=== PATIENT | female | born 1940 | race African-American/Black ===

== ENCOUNTER 2022-08-20 13:57 | Inpatient (IN) ==
--- NOTE | 2022-08-20 15:54 | ED.PDOC ---
General ED Provider: Dr. MINH CARRASCO MD Chief Complaint: Non-specific Complaint Stated Complaint: swelling of lower lip and neck Time Seen by Provider: 08/20/22 15:43 Information Source: Family Exam Limitations: Dementia Nursing and Triage Documentation Reviewed and Agree: Yes Does patient meet sepsis criteria?: No System Inflammatory Response Syndrome: Not Applicable Sepsis Protocol: For patient's 13 years and over: Temp is 96.8 and below OR 101 and greater Pulse >90 BPM Resp >20/minute Acutely Altered Mental Status Are patient's symptoms suggestive of a new infection, such as: -Pneumonia -Skin, Soft Tissue -Endocarditis -UTI -Bone, Joint Infection -Implantable Device -Acute Abdominal Infection -Wound Infection -Meningitis -Blood Stream Catheter Infection -Unknown EENT Complaint Exam Throat Complaint/Exam Onset/Duration: ~3 days ago first noticed Symptoms Are: Worse Timimg: Constant Initial Severity: Mild Current Severity: Moderate Aggravating: Reports None Alleviating: Reports None Associated Signs and Symptoms: Denies Fever, Dysphagia, Drooling, Foreign body sensation, Chills, Cough, Wheezing, Hoarseness, Sinus discomfort, Nasal congestion, Difficulty breathing, Lethargy, Irritability, Decreased activity, Vomiting, Diarrhea, Decreased hearing or Ear drainage Related History: Denies Similar Episode Stridor Present: No Differential Diagnoses: Pharyngitis, Sinusitis, Tonsillitis and URI Review of Systems Review Of Systems Constitutional: Reports Malaise and Weakness Ears, Nose, Mouth, Throat: Reports Mouth pain, Throat pain and Throat swelling All Other Systems: Other (complete and accurate ROS not possible secondary to dementia) [facility] Medical History 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 - Atherosclerotic heart disease of [place] coronary artery without angina pectoris (ICD-10) Constipation K59.00 - Constipation, unspecified (ICD-10) Family History Other No known health problems Social History Smoking and tobacco status: Unknown if ever smoked Physical Exam Physical Exam Appearance: Reports Ill-appearing Ill-appearing: Moderate Pain Distress: Moderate Eyes: Reports KARRI, EOMI and Conjunctiva clear ENT: Reports Ears normal, Nose normal and Other (tongue coated with white) Neck: Nonsupple (normal age-appropriate external appearance) Respiratory: Reports Airway patent, Breath sounds clear, Breath sounds equal, Breath sounds diminished and Respirations nonlabored Cardiovascular: Reports RRR GI/: Reports Soft, Nontender and Bowel sounds normal Musculoskeletal: Reports Limited strength and Other (unable to fully examine secondary to dementia) Skin: Reports Warm and Dry Neurological: Reports Sensation intact, Cranial nerves intact, Disoriented, Alert to verbal and Other (advanced dementia at baseline); Denies Focal Deficit Psychiatric: Reports Anxious and Other (demented, intermittent screaming) Critical Care Note Critical Care Note Total Critical Care Time (mins): 0 Course Course 08/23/22 04:55 08/23/22 04:45 Vital Signs: Temp Pulse Resp BP Pulse Ox 08/20/22 15:26 97.9 F 86 16 116/89 100 Patient presents with swelling and erythema of the neck and lower lip which was first noticed ~2 days ago. Labs showed a mild leukocytosis with a left shift and progressively worsening CRI. CT reported "Extensive perimandibular soft tissue swelling likely cellulitis. There is not a well-defined drainable abscess evident although a phlegmon is not excluded. There are also numerous enlarged reactive submental and perimandibular lymph node. Atherosclerosis". I spoke with the Hospitalist PERFUSIONIST here, Taye Fulton, who accepted. I gave the f irst dose of Zosyn, with dosage adjusted to account for her renal function. The patient was in stable condition when transported from the ED to the medical floor. Discharge Plan Discharge Patient Disposition: ADMITTED INPATIENT Discharge Problem: Cellulitis of neck, Chronic renal insufficiency Did you review [place] BLOOD OR BLOOD BANK TECHNICIAN for ALL controlled substances?: Not Applicable ED Provider: MINH CARRASCO Condition: Stable Physician Progress Note: []
[2022-08-20 16:14] LABS: BASOPHILS % (AUTO) 0.3 % (0.0-3.0); EOSINOPHILS % (AUTO) 0.1 % (0.0-7.0); HEMATOCRIT 31.8 % (37.0-47.0); HEMOGLOBIN 10.1 g/dl (12.0-16.0); IMMATURE GRANULOCYTE % (AUTO) 0.3 % (0.0-5.0); LYMPHOCYTES # (AUTO) 0.8 K/uL (0.60-3.4); LYMPHOCYTES % (AUTO) 6.8 (10.0-50.0); MEAN CORPUSCULAR HEMOGLOBIN 29.5 pg (27.0-31.0); MEAN CORPUSCULAR HGB CONC 31.8 (31.8-35.4); MONOCYTES % (AUTO) 8.6 (0-10); NEUTROPHILS # (AUTO) 9.9 K/ul (2.0-6.9); NEUTROPHILS % (AUTO) 83.9 % (42.2-75.2); PLATELET COUNT 410 10^3/uL (140-440); RDW COEFFICIENT OF VARIATION 13.4 % (11.6-14.8); RED BLOOD COUNT 3.42 10^6/ul (4.20-5.40); WHITE BLOOD COUNT 11.81 K/ul (4.6-10.2)
[2022-08-20 16:28] LABS: ALBUMIN 4.6 g/dL (3.5-5.0); ALKALINE PHOSPHATASE 96.2 U/L (53-141); ASPARTATE AMINO TRANSFERASE 22.3 U/L (14-36); BILIRUBIN,TOTAL 0.56 mg/dL (0.2-1.3); BLOOD UREA NITROGEN 41.5 mg/dL (7-17); CALCIUM 10.42 mg/dL (8.4-10.2); CARBON DIOXIDE 26.6 mmol/L (22-30.0); CHLORIDE 109.7 mmol/L (98-107); CREATININE 2.64 mg/dL (0.60-1.30); GLUCOSE 262.2 mg/dL (74-106); MAGNESIUM 2.43 mg/dL (1.6-2.3); POTASSIUM 4.94 mmol/L (3.5-5.1); SODIUM 144.4 mmol/L (134.5-145); TOTAL PROTEIN 8.79 g/dL (6.3-8.2)
[2022-08-20 16:34] LABS: MOLECULAR FLU A NEGATIVE BY NAAT (NEGATIVE); MOLECULAR FLU B NEGATIVE BY NAAT (NEGATIVE)
[2022-08-20 16:53] LABS: SARS COV-2 RNA RAPID NAAT NEGATIVE (NEGATIVE)
--- NOTE | 2022-08-20 19:44 | CT ---
EXAM: CT OF THE NECK WITHOUT CONTRAST TECHNIQUE: CT of the neck was performed without contrast. Multiplanar reformats were made. HISTORY: Swelling and redness under chain COMPARISON: None. FINDINGS: There is extensive perimandibular soft tissue swelling centrally and paracentral left. Skin thickeni ng and localized tony reaction present. There is an abnormal appearance of the mandible on reconstr uction which may be related to motion artifact. A well-defined drainable fluid collection is not clearly evident however findings may be on the basis of a phlegmon. The submandibular glands are symmetric. Parotid glands are symmetric. Epiglottis is normal.. Tonsillar fat planes are grossly symmetric. Orbits are unremarkable. Scattered calcified atheromatous plaques. Multilevel cervical disc disease is present throughout the cervical spine. Multilevel facet arthropa thy is present. No acute findings in the pulmonary apices. Small thyroid nodule on the left is present. IMPRESSION: Extensive perimandibular soft tissue swelling likely cellulitis. There is not a well-defined drainab le abscess evident although a phlegmon is not excluded. There are also numerous enlarged reactive [place] bmental and perimandibular lymph node. Atherosclerosis. All CT scans are performed using dose optimization techniques as appropriate to the performed exam an d includes at least one of the following: Automated exposure control, adjustment of the mA and/or kV according to size, and the use of iterative reconstruction technique. All CT scans are performed using dose optimization techniques as appropriate to the performed exam an d include at least one of the following: Automated exposure control, adjustment of the mA and/or kV according t o size, and the use of iterative reconstruction technique.
[2022-08-20] MEDS ORDERED: ZOSYN 2.25 GM 2.25 GM in SODIUM CHLORIDE 100ML 100 ML IV ONE (20:16)
[2022-08-20] MEDS ORDERED: TYLENOL PO PRN (20:18)
[2022-08-20] MEDS ORDERED: ZOFRAN 4 MG/2 ML IVP PRN (20:23)
[2022-08-20] MEDS ORDERED: SODIUM CHLORIDE 1,000 ML IV STA (20:26)
[2022-08-20 22:57] VITALS: BMI 16.7
[2022-08-21] MEDS ORDERED: ZOSYN 2.25 GM 2.25 GM in SODIUM CHLORIDE 100ML 100 ML IV SCH ×2 (04:30→13:00)
[2022-08-21 05:27] LABS: BASOPHILS % (AUTO) 0.2 % (0.0-3.0); HEMATOCRIT 29.9 % (37.0-47.0); HEMOGLOBIN 9.2 g/dl (12.0-16.0); IMMATURE GRANULOCYTE # (AUTO) 0.1 (0.0-1.0); IMMATURE GRANULOCYTE % (AUTO) 0.4 % (0.0-5.0); LYMPHOCYTES # (AUTO) 0.6 K/uL (0.60-3.4); LYMPHOCYTES % (AUTO) 4.6 (10.0-50.0); MEAN CORPUSCULAR HEMOGLOBIN 28.8 pg (27.0-31.0); MEAN CORPUSCULAR HGB CONC 30.8 (31.8-35.4); MEAN CORPUSCULAR VOLUME 93.4 fl (81.0-99.0); MONOCYTES # (AUTO) 1.1 K/uL (0.4-2.0); MONOCYTES % (AUTO) 7.6 (0-10); NEUTROPHILS % (AUTO) 87.2 % (42.2-75.2); PLATELET COUNT 411 10^3/uL (140-440); RDW COEFFICIENT OF VARIATION 13.4 % (11.6-14.8); WHITE BLOOD COUNT 13.78 K/ul (4.6-10.2)
[2022-08-21 05:34] LABS: ALANINE AMINOTRANSFERASE 13.8 U/L (0-35); ALBUMIN 4.09 g/dL (3.5-5.0); ALKALINE PHOSPHATASE 89.2 U/L (53-141); ASPARTATE AMINO TRANSFERASE 19.9 U/L (14-36); BILIRUBIN,TOTAL 0.53 mg/dL (0.2-1.3); BLOOD UREA NITROGEN 42.2 mg/dL (7-17); CALCIUM 9.57 mg/dL (8.4-10.2); CARBON DIOXIDE 23.6 mmol/L (22-30.0); CHLORIDE 111.4 mmol/L (98-107); CREATININE 2.67 mg/dL (0.60-1.30); POTASSIUM 4.43 mmol/L (3.5-5.1); SODIUM 142.6 mmol/L (134.5-145); TOTAL PROTEIN 7.87 g/dL (6.3-8.2)
[2022-08-21] MEDS ORDERED: TYLENOL RC ONE (05:36)
[2022-08-21] MEDS ORDERED: OLANZAPINE 5 MG PO SCH (09:15)
[2022-08-21] MEDS ORDERED: VANCOMYCIN 1 GRAM/200 ML PREMIX 1 GM/200 ML BAG IV SCH (09:30)
[2022-08-21] MEDS: COLACE PO SCH ×2 (09:35→20:40)
[2022-08-21] MEDS: ASPIRIN CHEWABLE PO SCH (09:36)
[2022-08-21] MEDS: APRESOLINE PO SCH ×2 (09:37→20:39)
[2022-08-21] MEDS: NORVASC PO SCH (09:38)
[2022-08-21] MEDS: LOPRESSOR PO SCH (09:39)
[2022-08-21] MEDS: NAMENDA PO SCH ×2 (09:39→20:40)
--- NOTE | 2022-08-21 09:42 | PCM ---
Date of Service Date Seen by Provider: 08/21/22 Time Seen by Provider: 08:15 Admit Day/Time Admission Date: 08/20/22 Admission Time: 20:18 Reason for Admission Chief Complaint: CELLULITIS Hospital Provider Hospital Provider: Meagan Lowery PA-C, [facility] History of Present Illness History of Present Illness: Patient is an 82-year-old female from the assisted with past medical history of dementia, diabetes, CAD, hypertension, hyperlipidemia, history of stroke, and anxiety who presented with a 2-day history of left-sided neck and facial swelling and redness. Her lower lip has been swollen as well. She has been running a fever. She is unable to verbalize her needs due to her dementia. In the ER she was found to have mild leukocytosis. CT of soft tissue of neck without showed perimandibular cellulitis without a collection of fluid and lymphadenopathy. She was given Zosyn. She was admitted to observation. On my evaluation this morning the patient does not answer my questions but she does nod yes occasionally. She does have significant left-sided facial swelling, warmth, induration. She is eating breakfast with the tech. She is able to swallow. However she is harboring food on the left side of her mouth specifically oatmeal during my evaluation. ROS and past medical history limited due to patient unable to contribute to history. Other information gathered from ER note and previous assisted visit notes. Case Discussed With Case Discussed With: Patient's case was discussed with the ER Physicians, Dr. Rodriguez. 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 - Atherosclerotic heart disease of [place] coronary artery without angina pectoris (ICD-10) Constipation K59.00 - Constipation, unspecified (ICD-10) Family History Other No known health problems Social History Smoking and tobacco status: Unknown if ever smoked Allergies Allergies Allergy/AdvReac Type Severity Reaction Status Date / Time tuna oil Allergy Intermediate Unknown Verified 08/21/22 05:47 Current Medications Home Medications amlodipine 10 mg tablet 10 mg PO DAILY hypertension 08/20/22 [History Confirmed 08/20/22 Last Taken Unknown] aspirin 81 mg chewable tablet 81 mg PO DAILY 08/20/22 [History Confirmed 08/20/22 Last Taken Unknown] atorvastatin 40 mg tablet 40 mg PO QHS hyperlipidemia 08/20/22 [History Confirmed 08/20/22 Last Taken Unknown] docusate sodium 100 mg capsule (Col-Rite) 100 mg PO BID 08/20/22 [History Confirmed 08/20/22 Last Taken Unknown] docusate sodium 100 mg capsule (Col-Rite) 100 mg PO Q6HR PRN constipation 08/20/22 [History Confirmed 08/20/22 Last Taken Unknown] ezetimibe 10 mg tablet 10 mg PO QHS 08/20/22 [History Confirmed 08/20/22 Last Taken Unknown] hydralazine 25 mg tablet 25 mg PO BID 08/20/22 [History Confirmed 08/20/22 Last Taken Unknown] melatonin 3 mg capsule 3 mg PO BEDTIME 08/20/22 [History Confirmed 08/20/22 Last Taken Unknown] memantine 5 mg tablet 5 mg PO BID 08/20/22 [History Confirmed 08/20/22 Last Taken Unknown] metoprolol tartrate 50 mg tablet 50 mg PO DAILY hypertension 08/20/22 [History Confirmed 08/20/22 Last Taken Unknown] olanzapine 5 mg disintegrating tablet 2.5 mg PO BID dementia 08/20/22 [History Confirmed 08/20/22 Last Taken Unknown] Home Acetaminophen (Acetaminophen 325 Mg Tablet) 650 mg PO Q4H PRN PRN Reason: fever Amlodipine Besylate (Amlodipine Besylate 5 Mg Tablet) 10 mg PO DAILY [facility] Last Admin: 08/21/22 09:38 Dose: 10 mg Aspirin (Aspirin 81 Mg Tab.Chew) 81 mg PO DAILYWM [facility] Last Admin: 08/21/22 09:36 Dose: 81 mg Atorvastatin Calcium (Atorvastatin Calcium 20 Mg Tablet) 40 mg PO BEDTIME [facility] Docusate Sodium (Docusate Sodium 100 Mg Capsule) 100 mg PO BID [facility] Last Admin: 08/21/22 09:35 Dose: 100 mg Enoxaparin Sodium (Enoxaparin Sodium 30 Mg/0.3 Ml Syr) 30 mg SUBCUT DAILY [facility] Hydralazine HCl (Hydralazine Hcl 50 Mg Tablet) 25 mg PO BID [facility] Last Admin: 08/21/22 09:37 Dose: 25 mg CEFEPIME 2 GM/D5W (Maxipime 2 Gm/50 Ml D5w) 2 gm in 50 mls @ 100 mls/hr IV DAILY [facility] Stop: 08/25/22 08:59 VANCOMYCIN/WATER FOR INJ (PEG) (Vancomycin 1 Gram/200 Ml Premix) 1 gm in 200 mls @ 200 mls/hr IV Q48HR [facility] Stop: 08/24/22 09:29 Last Admin: 08/21/22 09:33 Dose: 200 mls/hr Lactated Ringer's (Lactated Ringers) 1,000 mls @ 100 mls/hr IV .Q10H [facility] Melatonin (Melatonin 3 Mg Tablet) 3 mg PO BEDTIME [facility] Memantine (Memantine Hcl 10 Mg Tablet) 5 mg PO BID [facility] Last Admin: 08/21/22 09:39 Dose: 5 mg Metoprolol Tartrate (Metoprolol Tartrate 50 Mg Tablet) 50 mg PO DAILY [facility] Last Admin: 08/21/22 09:39 Dose: 50 mg Olanzapine (Olanzapine 2.5 Mg Tablet) 2.5 mg PO BID [facility] Last Admin: 08/21/22 09:54 Dose: 2.5 mg Ondansetron HCl (Ondansetron Hcl/Pf 4 Mg/2 Ml Sdv) 4 mg IVP Q6H PRN PRN Reason: Nausea / Vomiting Discontinued Medications Acetaminophen (Acetaminophen 650 Mg Supp.Rect) 650 mg RC ONCE ONE Stop: 08/21/22 05:37 Last Admin: 08/21/22 05:51 Dose: 650 mg Piperacillin Sod/Tazobactam (Sod 2.25 gm/ Sodium Chloride) 100 mls @ 100 mls/hr IV ONCE ONE Stop: 08/20/22 21:15 Last Admin: 08/20/22 21:45 Dose: 100 mls/hr Piperacillin Sod/Tazobactam (Sod 2.25 gm/ Sodium Chloride) 100 mls @ 100 mls/hr IV Q8H [facility] Stop: 08/24/22 04:29 Last Admin: 08/21/22 04:41 Dose: 100 mls/hr Sodium Chloride (Sodium Chloride) 1,000 mls @ 75 mls/hr IV .[id number] STA Stop: 08/21/22 09:45 Last Admin: 08/20/22 21:48 Dose: 75 mls/hr Piperacillin Sod/Tazobactam (Sod 2.25 gm/ Sodium Chloride) 100 mls @ 100 mls/hr IV Q8HR JIMENEZ Stop: 08/24/22 04:29 Review of Systems Constitutional: Reports Fever Mouth: Reports Swelling Throat: Denies Difficulty Swallowing Respiratory: Denies Shortness of air Gastrointestinal: Denies Nausea or Vomiting Physical examination Most Recent Vital Signs: Most Recent Vital Signs Temperature 98.9 F 08/21/22 08:12 Temperature Source Axillary 08/21/22 08:12 Temperature Source Infrared 08/20/22 19:18 Pulse Rate 105 H 08/21/22 05:33 Respiratory Rate 18 08/21/22 05:33 Blood Pressure 139/78 08/21/22 05:33 Blood Pressure Mean 98 08/21/22 05:33 Blood Pressure Left Arm 158/88 08/20/22 22:38 Blood Pressure Location Left Arm 08/21/22 05:33 Blood Pressure Position Supine 08/21/22 05:33 O2 Sat by Pulse Oximetry 98 08/21/22 05:33 Oxygen Delivery Method Room Air 08/21/22 08:12 Height 5 ft 6 in 08/21/22 09:20 Weight 120 lb 08/20/22 22:38 Telemetry Type Remote Telemetry 08/21/22 07:00 Telemetry Monitoring Continues 08/21/22 07:00 Telemetry Heart Rate 97 08/21/22 07:00 EKG MI Interval 0.15 08/21/22 07:00 EKG QRS Interval 0.12 H 08/21/22 07:00 Telemetry Strip Reading SR with BBB 08/21/22 07:00 Appearance: Positive No Apparent Distress and Other (Alert. Does not answer orientation questions. Demented at baseline. Sitting up in bed eating breakfast with tech, has legs flexed.) HEENT: Positive Other (Dry oral mucosa. Unable to fully evaluate inside of mouth as patient does not follow my commands, is resistant to tongue depressor, and is holding oatmeal inside her left cheek. ) Neck: Positive Midline Trachea and Other (Significant swelling, redness, induration, and warmth of left upper neck extending into left jaw and lower lip. Swelling of lower lip noted. No drooling. Airway intact. Able to open and close mouth. ) Chest/Lungs: Positive Symmetrical With Equal Breath Sounds and Clear to Auscultation Bilaterally; Negative Rales, Rhonci or Wheezes Heart: Positive RRR GI/: Positive Soft, Nontender and Bowel Sounds Normal Musculoskeletal: Positive Decreased ROM and Other (Atrophy of lower ext muscles, knees and hips flexed.) Extremities: Negative Edema Neurological: Positive Alert and Other (+generalized weakness. +baseline confusion. ) Psychiatric: Positive Other (Unable to fully evaluate due to her dementia. ) Labs This Visit Labs This Visit: Labs This Visit 08/20/22 08/21/22 16:05 04:33 WBC 11.81 H 13.78 H RBC 3.42 L 3.20 L Hgb 10.1 L 9.2 L Hct 31.8 L 29.9 L MCV 93.0 93.4 MCH 29.5 28.8 MCHC 31.8 30.8 L RDW Coeff of Elsy 13.4 13.4 Plt Count 410 411 Immature Gran % (Auto) 0.3 0.4 Neut % (Auto) 83.9 H 87.2 H Lymph % (Auto) 6.8 L 4.6 L [place] % (Auto) 8.6 7.6 Eos % (Auto) 0.1 0.0 Baso % (Auto) 0.3 0.2 Neut # (Auto) 9.9 H 12.0 H Lymph # (Auto) 0.8 0.6 [place] # (Auto) 1.0 1.1 Eos # (Auto) 0.0 0.0 Baso # (Auto) 0.0 0.0 Immature Gran # (Auto) 0.0 0.1 Sodium 144.4 142.6 Potassium 4.94 4.43 Chloride 109.7 H 111.4 H Carbon Dioxide 26.6 23.6 Anion Gap 13.04 12.03 BUN 41.5 H 42.2 H Creatinine 2.64 H 2.67 H Estimated GFR (MDRD) 21.00 21.00 BUN/Creatinine Ratio 15.71 15.80 Glucose 262.2 H 230.0 H Calcium 10.42 H 9.57 Magnesium 2.43 H Total Bilirubin 0.56 0.53 AST 22.3 19.9 ALT 14.0 13.8 Alkaline Phosphatase 96.2 89.2 Total Protein 8.79 H 7.87 Albumin 4.60 4.09 Globulin 4.19 3.78 Albumin/Globulin Ratio 1.09 1.08 Influ A Molecular Assay Negative by naat Influ B Molecular Assay Negative by naat SARS CoV-2 RNA Rapid GARRET Negative Microbiology This Visit 08/20/22 16:05 Throat Group A Strep Molecular Assay - Final Imaging Imaging: EXAM: CT OF THE NECK WITHOUT CONTRAST TECHNIQUE: CT of the neck was performed without contrast. Multiplanar reformats were made. HISTORY: Swelling and redness under chain COMPARISON: None. FINDINGS: There is extensive perimandibular soft tissue swelling centrally and paracentral left. Skin thickening and localized tony reaction present. There is an abnormal appearance of the mandible on reconstruction which may be related to motion artifact. A well-defined drainable fluid collection is not clearly evident however findings may be on the basis of a phlegmon. The submandibular glands are sy mmetric. Parotid glands are symmetric. Epiglottis is normal.. Tonsillar fat planes are grossly symmetric. Orbits are unremarkable. Scattered calcified atheromatous plaques. Multilevel cervical disc disease is present throughout the cervical spine. Multilevel facet arthropathy is present. No acute findings in the pulmonary apices. Small thyroid nodule on the left is present. IMPRESSION: Extensive perimandibular soft tissue swelling likely cellulitis. There is not a well-defined drainable abscess evident although a phlegmon is not excluded. There are also numerous enlarged reactive submental and perimandibular lymph node. Atherosclerosis. Review Statement Review Statement: I have independently reviewed and interpreted the labs/EKGs/imaging that were ordered by the ER provider. I have reviewed all outside records that are available currently in our EMR including imaging/notes/labs from previous visits. Plan Plan: A&P: 1. Cellulitis of face/neck, left, moderate to severe - Will add vancomycin, pharmacy to dose. Stop zosyn, add cefepime due to renal function. Mrsa swab ordered. Tylenol prn for fever/pain. Pt currently able to tolerate PO and able to eat. CT negative for obvious abscess. 2. CAD - Continue home meds 3. Hypertension - Continue home metoprolol, amlodipine, and hydralazine 4. Hyperlipidemia - Continue atorvastatin 5. DMT2 - Recently stopped metformin due to renal function per assisted visit notes, will monitor daily glucose and add sliding scale if needed. 6. Dementia - Continue home melatonin and olanzapine. If patient becomes agitated call provider, will consider IM olanzapine if needed. DVT Prophylaxis: Lovenox Time Spent: Greater than 80 minutes spent with patient, 50% of the time spent with this patient was devoted to counseling and coordination of care. [facility] minutes spent discussing advance care planning/reviewing old charts. DNR per records Admit to: Made inpatient today, 08/21. Patient has significant swelling, warmth, and redness of left upper neck and facial area. Will likely require more than two midnights to improve. Requiring IV antibiotics with broad spectrum coverage. Pt also has diabetes which increases her risk of significant infection. Also co ncern for increased length of stay/recovery due to her underlying dementia. Discussed Plan of Care with Dr. Tomy Espinoza. Medications Medication Orders: Medications Ordered Category Date Time Status Acetaminophen [Tylenol] Meds 08/20/22 20:18 Active 650 mg PO Q4H PRN Amlodipine Besylate [Norvasc] Meds 08/21/22 09:30 Active 10 mg PO DAILY Aspirin [Aspirin Chewable] Meds 08/21/22 09:30 Active 81 mg PO DAILYWM Atorvastatin Calcium [Lipitor] Meds 08/21/22 21:00 Active 40 mg PO BEDTIME Cefepime 2 gm/D5w [Maxipime 2 gm/50 ml D5w] Meds 08/22/22 09:00 Active 2 gm in 50 ml IV DAILY Docusate Sodium [Colace] Meds 08/21/22 09:30 Active 100 mg PO BID Hydralazine HCl [Apresoline] Meds 08/21/22 09:30 Active 25 mg PO BID Melatonin Meds 08/21/22 21:00 Active 3 mg PO BEDTIME Memantine HCl [Namenda] Meds 08/21/22 09:30 Active 5 mg PO BID Metoprolol Tartrate [Lopressor] Meds 08/21/22 09:30 Active 50 mg PO DAILY Olanzapine [Zyprexa] Meds 08/21/22 09:30 Active 2.5 mg PO BID Ondansetron HCl/Pf [Zofran 4 mg/2 ml] Meds 08/20/22 20:23 Active 4 mg IVP Q6H PRN Sodium Chloride 0.9% [Sodium Chloride] 1,000 ml Meds 08/20/22 20:26 Active IV 75 mls/hr Vancomycin/Water For Inj (Peg) [Vancomycin 1 Gram/200 Meds 08/21/22 09:30 Active ml Premix] 1 gm in 200 ml IV Q48HR
[2022-08-21] MEDS: ZYPREXA PO SCH ×2 (09:54→20:39)
[2022-08-21] MEDS: LOVENOX SUBCUT SCH (11:07)
[2022-08-21] MEDS: MAXIPIME 2 GM/50 ML D5W 2 GM/50 ML BAG IV SCH (11:51)
[2022-08-21] MEDS: LACTATED RINGERS 1,000 ML IV SCH ×2 (13:10→21:19)
[2022-08-21] MEDS: MELATONIN PO SCH (20:39)
[2022-08-21] MEDS: LIPITOR PO SCH (20:39)
[2022-08-22 05:44] LABS: BASOPHILS % (AUTO) 0.4 % (0.0-3.0); EOSINOPHILS % (AUTO) 0.5 % (0.0-7.0); HEMATOCRIT 27.2 % (37.0-47.0); HEMOGLOBIN 8.5 g/dl (12.0-16.0); IMMATURE GRANULOCYTE % (AUTO) 0.3 % (0.0-5.0); LYMPHOCYTES # (AUTO) 1.1 K/uL (0.60-3.4); LYMPHOCYTES % (AUTO) 14.6 (10.0-50.0); MEAN CORPUSCULAR HEMOGLOBIN 29.3 pg (27.0-31.0); MEAN CORPUSCULAR HGB CONC 31.3 (31.8-35.4); MEAN CORPUSCULAR VOLUME 93.8 fl (81.0-99.0); MONOCYTES # (AUTO) 0.7 K/uL (0.4-2.0); MONOCYTES % (AUTO) 8.8 (0-10); NEUTROPHILS # (AUTO) 5.9 K/ul (2.0-6.9); NEUTROPHILS % (AUTO) 75.4 % (42.2-75.2); PLATELET COUNT 349 10^3/uL (140-440); RDW COEFFICIENT OF VARIATION 13.4 % (11.6-14.8); WHITE BLOOD COUNT 7.75 K/ul (4.6-10.2)
[2022-08-22 06:00] LABS: ALANINE AMINOTRANSFERASE 13.8 U/L (0-35); ALBUMIN 3.46 g/dL (3.5-5.0); ALKALINE PHOSPHATASE 74.2 U/L (53-141); ASPARTATE AMINO TRANSFERASE 23.5 U/L (14-36); BILIRUBIN,TOTAL 0.4 mg/dL (0.2-1.3); BLOOD UREA NITROGEN 44.1 mg/dL (7-17); CALCIUM 9.23 mg/dL (8.4-10.2); CHLORIDE 114.4 mmol/L (98-107); CREATININE 2.79 mg/dL (0.60-1.30); GLUCOSE 160.4 mg/dL (74-106); POTASSIUM 4.04 mmol/L (3.5-5.1); SODIUM 145.4 mmol/L (134.5-145)
[2022-08-22] MEDS: LACTATED RINGERS 1,000 ML IV SCH (07:20)
[2022-08-22] MEDS: COLACE PO SCH ×2 (08:30→20:01)
[2022-08-22] MEDS: LOVENOX SUBCUT SCH (08:30)
[2022-08-22] MEDS: NAMENDA PO SCH ×2 (08:30→20:01)
[2022-08-22] MEDS: ASPIRIN CHEWABLE PO SCH (08:30)
[2022-08-22] MEDS: LOPRESSOR PO SCH (08:30)
[2022-08-22] MEDS: NORVASC PO SCH (08:30)
[2022-08-22] MEDS: APRESOLINE PO SCH ×2 (08:30→20:02)
[2022-08-22] MEDS: SODIUM CHLORIDE 1,000 ML IV SCH ×2 (08:44→18:24)
[2022-08-22] MEDS ORDERED: VANCOMYCIN 1 GRAM/200 ML PREMIX 1 GM/200 ML BAG IV SCH (09:00)
--- NOTE | 2022-08-22 09:41 | PCM.PROG ---
Date/Time Seen Date Seen by Provider: 08/22/22 Time Seen by Provider: 08:30 Provider Provider: MEAGAN LOWERY PA-C, [facility] Chief Complaint Chief Complaint: CELLULITIS Subjective Subjective: Patient somewhat agitated this morning. She scratched a nurse while cleaning her up. She swatted at this provider while trying to examine her mouth. No events overnight. Objective Appearance: Positive Ill-Appearing Chest/Lungs: Positive Symmetrical With Equal Breath Sounds and Clear to Auscultation Bilaterally; Negative Rales, Rhonci or Wheezes Heart: Positive RRR GI/: Positive Soft and Nontender Neurological: Positive Alert and Disorinted (at baseline) Additional Findings: HEENT: Patient has significant swelling, warmth, and induration of upper left neck and mandible area. This is improved since yesterday. Lower lip still very swollen. Pt refuses exam of oral cavity. Vital Signs Vital Signs: Vital Signs: Last 24 Hours 08/21/22 10:00 08/21/22 14:00 08/21/22 18:00 Temperature 96.5 F L 96.7 F L 97 F L Temperature Source Temporal Artery Scan Temporal Artery Scan Temporal Artery Scan Pulse Rate 86 77 79 Respiratory Rate 22 H 16 20 Blood Pressure 162/86 H 169/86 H 141/80 H Blood Pressure Mean 111 113 100 Blood Pressure Location Left Calf Left Calf Left Calf Blood Pressure Position Supine Supine Supine O2 Sat by Pulse Oximetry 98 98 98 Oxygen Delivery Method Room Air Room Air Room Air Telemetry Type Telemetry Monitoring Telemetry Heart Rate EKG WA Interval EKG QRS Interval Telemetry Strip Reading 08/21/22 13:00 08/21/22 12:30 08/21/22 19:00 Temperature Temperature Source Pulse Rate Respiratory Rate Blood Pressure Blood Pressure Mean Blood Pressure Location Blood Pressure Position O2 Sat by Pulse Oximetry Oxygen Delivery Method Telemetry Type Remote Telemetry Remote Telemetry Remote Telemetry Telemetry Monitoring Continues Continues Telemetry Heart Rate 81 91 EKG WA Interval 0.12 0.13 EKG QRS Interval 0.10 0.09 Telemetry Strip Reading patient removed NSR NSR 08/21/22 20:00 08/21/22 21:41 08/22/22 01:00 Temperature 97.9 F Temperature Source Axillary Pulse Rate 105 H Respiratory Rate 18 Blood Pressure 164/93 H Blood Pressure Mean 116 Blood Pressure Location Left Arm Blood Pressure Position Supine O2 Sat by Pulse Oximetry 97 Oxygen Delivery Method Room Air Room Air Telemetry Type Remote Telemetry Telemetry Monitoring Continues Telemetry Heart Rate 98 EKG WA Interval 0.12 EKG QRS Interval 0.12 H Telemetry Strip Reading SR W/ BBB 08/22/22 01:50 08/22/22 05:38 08/22/22 07:00 Temperature 99.2 F 97.8 F Temperature Source Oral Oral Pulse Rate 97 93 Respiratory Rate 16 20 Blood Pressure 127/77 140/73 Blood Pressure Mean 93 95 Blood Pressure Location Left Calf Left Calf Blood Pressure Position Supine O2 Sat by Pulse Oximetry 98 100 Oxygen Delivery Method Room Air Room Air Telemetry Type Remote Telemetry Telemetry Monitoring Continues Telemetry Heart Rate EKG WA Interval 0.14 EKG QRS Interval 0.12 H Telemetry Strip Reading SR WITH BBB Lab Results Lab Results: Lab Results: Last 24 Hours 08/22/22 08/21/22 04:40 04:33 WBC 7.75 D RBC 2.90 L Hgb 8.5 L Hct 27.2 L MCV 93.8 MCH 29.3 MCHC 31.3 L RDW Coeff of Elsy 13.4 Plt Count 349 Immature Gran % (Auto) 0.3 Neut % (Auto) 75.4 H Lymph % (Auto) 14.6 Stephenson % (Auto) 8.8 Eos % (Auto) 0.5 Baso % (Auto) 0.4 Neut # (Auto) 5.9 Lymph # (Auto) 1.1 Stephenson # (Auto) 0.7 Eos # (Auto) 0.0 Baso # (Auto) 0.0 Immature Gran # (Auto) 0.0 Sodium 145.4 H Potassium 4.04 Chloride 114.4 H Carbon Dioxide 25.0 Anion Gap 10.04 BUN 44.1 H Creatinine 2.79 H Estimated GFR (MDRD) 20.00 BUN/Creatinine Ratio 15.80 Glucose 160.4 H Calcium 9.23 Total Bilirubin 0.40 AST 23.5 ALT 13.8 Alkaline Phosphatase 74.2 C-Reactive Prot, Quant 175 H Total Protein 7.00 Albumin 3.46 L Globulin 3.54 Albumin/Globulin Ratio 0.97 Additional Comments Additional Comments: I have independently reviewed and interpreted the labs/EKGs/imaging ordered during this hospital stay. I have reviewed outside records that are available in our EMR that pertain to medical stay including imaging/notes/labs from previous visits. Active Medications Active Medications: Medications Generic Name Dose Route Start Last Admin Trade Name Mena PRN Reason Stop Dose Admin Acetaminophen 650 mg 08/20/22 20:18 Acetaminophen 325 Mg Tablet PO Q4H PRN fever Amlodipine Besylate 10 mg 08/21/22 09:30 08/21/22 09:38 Amlodipine Besylate 5 Mg Tablet PO 10 mg DAILY JIMENEZ Administration Aspirin 81 mg 08/21/22 09:30 08/21/22 09:36 Aspirin 81 Mg Tab.Chew PO 81 mg DAILYWM JIMENEZ Administration Atorvastatin Calcium 40 mg 08/21/22 21:00 08/21/22 20:39 Atorvastatin Calcium 20 Mg Tablet PO 40 mg BEDTIME JIMENEZ Administration Docusate Sodium 100 mg 08/21/22 09:30 08/21/22 20:40 Docusate Sodium 100 Mg Capsule PO 100 mg BID JIMENEZ Administration Enoxaparin Sodium 30 mg 08/21/22 10:00 08/21/22 11:07 Enoxaparin Sodium 30 Mg/0.3 Ml Syr SUBCUT 30 mg DAILY JIMENEZ Administration Hydralazine HCl 25 mg 08/21/22 09:30 08/21/22 20:39 Hydralazine Hcl 50 Mg Tablet PO 25 mg BID JIMENEZ Administration CEFEPIME 2 GM/D5W 2 gm in 50 mls @ 100 mls/hr 08/21/22 12:00 08/21/22 11:51 Maxipime 2 Gm/50 Ml D5w IV 08/24/22 11:59 100 mls/hr DAILY JIMENEZ Administration VANCOMYCIN/WATER FOR INJ (PEG) 1 gm in 200 mls @ 200 mls/hr 08/22/22 09:00 Vancomycin 1 Gram/200 Ml Premix IV 08/25/22 08:59 Q48HR JIMENEZ Sodium Chloride 1,000 mls @ 100 mls/hr 08/22/22 08:30 08/22/22 08:44 Sodium Chloride IV 100 mls/hr .Q10H JIMENEZ Administration Melatonin 3 mg 08/21/22 21:00 08/21/22 20:39 Melatonin 3 Mg Tablet PO 3 mg BEDTIME JIMENEZ Administration Memantine 5 mg 08/21/22 09:30 08/21/22 20:40 Memantine Hcl 10 Mg Tablet PO 5 mg BID JIMENEZ Administration Metoprolol Tartrate 50 mg 08/21/22 09:30 08/21/22 09:39 Metoprolol Tartrate 50 Mg Tablet PO 50 mg DAILY JIMENEZ Administration Olanzapine 2.5 mg 08/21/22 09:30 08/21/22 20:39 Olanzapine 2.5 Mg Tablet PO 2.5 mg BID JIMENEZ Administration Ondansetron HCl 4 mg 08/20/22 20:23 Ondansetron Hcl/Pf 4 Mg/2 Ml Sdv IVP Q6H PRN Nausea / Vomiting Plan Plan: 1. Cellulitis of face/neck, left, moderate to severe - Continue cefepime and vanc. Mrsa swab ordered. Tylenol prn for fever/pain. Pt currently able to tolerate PO and able to eat. CT negative for obvious abscess. 2. CAD - Continue home meds 3. Hypertension - Continue home metoprolol, amlodipine, and hydralazine 4. Hyperlipidemia - Continue atorvastatin 5. DMT2 - Recently stopped metformin due to renal function per longterm visit notes, will monitor daily glucose and add sliding scale if needed. 6. Dementia - Continue home melatonin and olanzapine. If patient becomes agitated call provider, will consider IM olanzapine if needed. DVT Prophylaxis: Lovenox Patient's labs unremarkable however clinically she still has far to go from a cellulitis standpoint. Will require IV abx at least one more midnight if not more. Review Statement Review Statement: I have personally discussed and reviewed the patient's visit/currently labs/imaging/decision making with Dr. Espinoza, my supervising attending. Greater that 50 minutes spent with patient, 50% of the time spent with this patient was devoted to counseling and coordination of care.
[2022-08-22] MEDS: ZYPREXA PO SCH ×2 (09:45→20:01)
[2022-08-22] MEDS: MAXIPIME 2 GM/50 ML D5W 2 GM/50 ML BAG IV SCH (11:48)
[2022-08-22] MEDS ORDERED: ZYPREXA IM ONE ×2 (19:44→20:11)
[2022-08-22] MEDS: MELATONIN PO SCH (20:02)
[2022-08-22] MEDS: LIPITOR PO SCH (20:02)
[2022-08-22 21:39] VITALS: RESP 18
[2022-08-23] MEDS: SODIUM CHLORIDE 1,000 ML IV SCH (04:47)
[2022-08-23 05:18] LABS: BASOPHILS % (AUTO) 0.6 % (0.0-3.0); EOSINOPHILS # (AUTO) 0.1 K/ul (0.0-0.7); EOSINOPHILS % (AUTO) 1.9 % (0.0-7.0); HEMATOCRIT 27.3 % (37.0-47.0); HEMOGLOBIN 8.3 g/dl (12.0-16.0); IMMATURE GRANULOCYTE % (AUTO) 0.4 % (0.0-5.0); LYMPHOCYTES # (AUTO) 1.4 K/uL (0.60-3.4); LYMPHOCYTES % (AUTO) 19.9 (10.0-50.0); MEAN CORPUSCULAR HEMOGLOBIN 28.8 pg (27.0-31.0); MEAN CORPUSCULAR HGB CONC 30.4 (31.8-35.4); MEAN CORPUSCULAR VOLUME 94.8 fl (81.0-99.0); MONOCYTES # (AUTO) 0.5 K/uL (0.4-2.0); MONOCYTES % (AUTO) 7.6 (0-10); NEUTROPHILS # (AUTO) 4.9 K/ul (2.0-6.9); NEUTROPHILS % (AUTO) 69.6 % (42.2-75.2); PLATELET COUNT 364 10^3/uL (140-440); RDW COEFFICIENT OF VARIATION 13.2 % (11.6-14.8); RED BLOOD COUNT 2.88 10^6/ul (4.20-5.40); WHITE BLOOD COUNT 6.98 K/ul (4.6-10.2)
[2022-08-23 05:27] VITALS: BP 163/87; TEMP 97.6
[2022-08-23 05:27] LABS: ALANINE AMINOTRANSFERASE 17.1 U/L (0-35); ALBUMIN 3.59 g/dL (3.5-5.0); ALKALINE PHOSPHATASE 62.3 U/L (53-141); BILIRUBIN,TOTAL 0.52 mg/dL (0.2-1.3); CALCIUM 9.23 mg/dL (8.4-10.2); CARBON DIOXIDE 24.3 mmol/L (22-30.0); CHLORIDE 113.6 mmol/L (98-107); CREATININE 2.17 mg/dL (0.60-1.30); GLUCOSE 145.1 mg/dL (74-106); POTASSIUM 4.31 mmol/L (3.5-5.1); SODIUM 141.3 mmol/L (134.5-145); TOTAL PROTEIN 7.12 g/dL (6.3-8.2)
[2022-08-23] MEDS: MAXIPIME 2 GM/50 ML D5W 2 GM/50 ML BAG IV SCH (08:25)
[2022-08-23] MEDS: ZYPREXA PO SCH (08:27)
[2022-08-23] MEDS: LOPRESSOR PO SCH (08:33)
[2022-08-23] MEDS: APRESOLINE PO SCH (08:34)
[2022-08-23] MEDS: ASPIRIN CHEWABLE PO SCH (08:35)
[2022-08-23] MEDS: NAMENDA PO SCH (08:35)
[2022-08-23] MEDS: NORVASC PO SCH (08:36)
[2022-08-23] MEDS: COLACE PO SCH (08:37)
[2022-08-23] MEDS: LOVENOX SUBCUT SCH (08:58)
--- NOTE | 2022-08-23 10:59 | DCSUM ---
Admission Date Admission Date: 08/20/22 Discharge Date Discharge Date: 08/23/22 Admission Diagnosis Admission Diagnosis: 1. Cellulitis Discharge Diagnosis Discharge Diagnosis: 1. Cellulitis of face/neck, left, moderate to severe - Improved. 2. CAD 3. Hypertension 4. Hyperlipidemia 5. DMT2 6. Dementia Hospital Provider Hospital Provider: MEAGAN LOWERY PA-C, [facility] Summary of History and Physical Summary of History and Physical: Patient is an 82-year-old female from the correction with past medical history of dementia, diabetes, CAD, hypertension, hyperlipidemia, history of stroke, and anxiety who presented with a 2-day history of left-sided neck and facial swelling and redness. Her lower lip has been swollen as well. She has been running a fever. She is unable to verbalize her needs due to her dementia. In the ER she was found to have mild leukocytosis. CT of soft tissue of neck without showed perimandibular cellulitis without a collection of fluid and lymphadenopathy. She was given Zosyn. She was admitted to observation. On my evaluation this morning the patient does not answer my questions but she does nod yes occasionally. She does have significant left-sided facial swelling, warmth, induration. She is eating breakfast with the tech. She is able to swallow. However she is harboring food on the left side of her mouth specifically oatmeal during my evaluation. ROS and past medical history limited due to patient unable to contribute to history. Other information gathered from ER note and previous correction visit notes. Hospital Course Subjective: Patient was treated with cefepime and vancomycin. Her swelling, warmth, induration, and redness improved throughout stay. She was able to tolerate p.o. when she would cooperate. She did not run a fever. White blood cell count was normal. She was kept an extra day for IV antibiotics just due to dementia and and unable to voice her needs. Clinically she has improved greatly. We will discharge her on doxycycline and Augmentin for another week. Probiotic prescribed as well. Continue to monitor for worsening infection. Airway intact. No drooling. Labs overall unremarkable. Renal function is at baseline. She did require Zyprexa 5 mg IM on the night of 08/22 due to agitation. Otherwise she has been felt to be at baseline. Appearance: No Apparent Distress and Alert HEENT: MMM CVS: No Murmur Abdomen: Soft and Non-Tender Respiratory: No Dyspnea Extremities: No Edema Additional Findings: Swelling, induration significantly improved of left upper neck/mandible area. Lip swelling significant improved. No warmth noted today. No open wounds or drainage. Vital Signs: Most Recent Vital Signs Temperature 97.6 F 08/23/22 05:17 Temperature Source Temporal Artery Scan 08/23/22 05:17 Temperature Source Infrared 08/20/22 19:18 Pulse Rate 70 08/23/22 05:17 Respiratory Rate 18 08/23/22 05:17 Blood Pressure 163/87 H 08/23/22 05:17 Blood Pressure Mean 112 08/23/22 05:17 Blood Pressure Left Arm 158/88 08/20/22 22:38 Blood Pressure Location Left Radial Artery 08/23/22 05:17 Blood Pressure Position Supine 08/23/22 05:17 O2 Sat by Pulse Oximetry 100 08/23/22 05:17 Oxygen Delivery Method Room Air 08/23/22 05:17 Height 5 ft 6 in 08/21/22 09:20 Weight 120 lb 08/20/22 22:38 Telemetry Type Remote Telemetry 08/23/22 06:59 Telemetry Monitoring Continues 08/23/22 06:59 Telemetry Heart Rate 77 08/23/22 06:59 EKG NJ Interval 0.16 08/23/22 06:59 EKG QRS Interval 0.10 08/23/22 06:59 EKG QT Interval 0.37 08/23/22 00:00 Telemetry Strip Reading SR 08/23/22 06:59 Imaging: EXAM: CT OF THE NECK WITHOUT CONTRAST TECHNIQUE: CT of the neck was performed without contrast. Multiplanar reformats were made. HISTORY: Swelling and redness under chain COMPARISON: None. FINDINGS: There is extensive perimandibular soft tissue swelling centrally and paracentral left. Skin thickening and localized tony reaction present. There is an abnormal appearance of the mandible on reconstruction which may be related to motion artifact. A well-defined drainable fluid collection is not clearly evident however findin gs may be on the basis of a phlegmon. The submandibular glands are symmetric. Parotid glands are symmetric. Epiglottis is normal.. Tonsillar fat planes are grossly symmetric. Orbits are unremarkable. Scattered calcified atheromatous plaques. Multilevel cervical disc disease is present throughout the cervical spine. Multilevel facet arthropathy is present. No acute findings in the pulmonary apices. Small thyroid nodule on the left is present. IMPRESSION: Extensive perimandibular soft tissue swelling likely cellulitis. There is not a well-defined drainable abscess evident although a phlegmon is not excluded. There are also numerous enlarged reactive submental and perimandibular lymph node. Atherosclerosis. Lab Results Last 24 Hours: 08/23/22 08/23/22 04:55 04:45 WBC 6.98 RBC 2.88 L Hgb 8.3 L Hct 27.3 L MCV 94.8 MCH 28.8 MCHC 30.4 L RDW Coeff of Elsy 13.2 Plt Count 364 Immature Gran % (Auto) 0.4 Neut % (Auto) 69.6 Lymph % (Auto) 19.9 Zavala % (Auto) 7.6 Eos % (Auto) 1.9 Baso % (Auto) 0.6 Neut # (Auto) 4.9 Lymph # (Auto) 1.4 Zavala # (Auto) 0.5 Eos # (Auto) 0.1 Baso # (Auto) 0.0 Immature Gran # (Auto) 0.0 Sodium 141.3 Potassium 4.31 Chloride 113.6 H Carbon Dioxide 24.3 Anion Gap 7.71 BUN 38.0 H Creatinine 2.17 H D Estimated GFR (MDRD) 26.00 BUN/Creatinine Ratio 17.51 Glucose 145.1 H Calcium 9.23 Total Bilirubin 0.52 AST 27.0 ALT 17.1 Alkaline Phosphatase 62.3 Total Protein 7.12 Albumin 3.59 Globulin 3.53 Albumin/Globulin Ratio 1.01 Discharge Instructions Discharge Planning: Discharge Planning > 70 minutes Discussed plan of care with Dr. Tomy Espinoza. Discharge Medications: Medications at Discharge (Home Meds & RX) amlodipine 10 mg tablet 10 mg PO DAILY hypertension 08/20/22 aspirin 81 mg chewable tablet 81 mg PO DAILY 08/20/22 atorvastatin 40 mg tablet 40 mg PO QHS hyperlipidemia 08/20/22 docusate sodium 100 mg capsule (Col-Rite) 100 mg PO BID 08/20/22 docusate sodium 100 mg capsule (Col-Rite) 100 mg PO Q6HR PRN constipation 08/20/22 ezetimibe 10 mg tablet 10 mg PO QHS 08/20/22 hydralazine 25 mg tablet 25 mg PO BID 08/20/22 melatonin 3 mg capsule 3 mg PO BEDTIME 08/20/22 memantine 5 mg tablet 5 mg PO BID 08/20/22 metoprolol tartrate 50 mg tablet 50 mg PO DAILY hypertension 08/20/22 olanzapine 5 mg disintegrating tablet 2.5 mg PO BID dementia 08/20/22 Saccharomyces boulardii 250 mg capsule (Florastor) 250 mg PO BID #14 caps 08/23/22 amoxicillin 500 mg-potassium clavulanate 125 mg tablet (Augmentin) 1 tab PO BID CELLULITIS #14 tabs 08/23/22 doxycycline monohydrate 100 mg capsule 100 mg PO BID CELLULITIS 7 days #14 caps 08/23/22 Discharge Plan Discharge Discharge Orders: Discharge Patient (ONCE); Ordered 08/23/22 Ordered By: MEAGAN LOWERY Activity Restrictions/Additional Instructions: DISCHARGE TO LONG-TERM DX: CELLULITIS OF NECK/FACE MEDICATIONS: RESUME HOME MEDS PRESCRIBED START: FLORASTOR,DOXYCYCLINE, AND AUGMENTIN F/U WITH PCP IN 2-3 DAYS ACTIVITY: TOLERATED DIET: HEART HEALTHY Instructions: Cellulitis (GEN) Care Plan Goals: Problem: Infection Goal #1: No signs/symptoms of infection Instructions: Monitor for sign/symptoms of infection Monitor temperature Goal #2: White blood cell counts Within Normal Limits Instructions: Obtain labs per physician orders Patient Disposition: TRANSFER SNF Prescriptions: New amoxicillin-pot clavulanate [Augmentin] 500-125 mg tablet 1 tab PO BID Qty: 14 0RF doxycycline monohydrate 100 mg capsule 100 mg PO BID 7 Days Qty: 14 0RF Saccharomyces boulardii [Florastor] 250 mg capsule 250 mg PO BID Qty: 14 0RF Continued amlodipine 10 mg tablet 10 mg PO DAILY atorvastatin 40 mg tablet 40 mg PO QHS ezetimibe 10 mg tablet 10 mg PO QHS hydralazine 25 mg tablet 25 mg PO BID memantine 5 mg tablet 5 mg PO BID olanzapine 5 mg tablet,disintegrating 2.5 mg PO BID aspirin 81 mg tablet,chewable 81 mg PO DAILY melatonin 3 mg capsule 3 mg PO BEDTIME docusate sodium [Col-Rite] 100 mg capsule 100 mg PO BID docusate sodium [Col-Rite] 100 mg capsule 100 mg PO Q6HR PRN (Reason: constipation) metoprolol tartrate 50 mg tablet 50 mg PO DAILY Did you review [place] [employer]OR for ALL controlled substances?: Not Applicable Discussed opioids are addictive and Narcan is available by prescription or from pharmacy.: No Condition: Stable
== END 2022-08-23 11:05 | DRG 603 ==
LOC: ED 13:57 → INTOOBSV 20:55 → MEDSURG B 20:55
PROVIDERS: ADMIT Hospitalist; ATTEND Physician Assistant
DX: L03.221 Cellulitis of neck; N18.9 Chronic kidney disease, unspecified; F03.90 Unspecified dementia, unspecified severity, without behavioral disturbance, psychotic disturbance, mood disturbance, and anxiety; Z79.899 Other long term (current) drug therapy; R22.0 Localized swelling, mass and lump, head; I25.10 Atherosclerotic heart disease of native coronary artery without angina pectoris; M62.81 Muscle weakness (generalized); E11.65 Type 2 diabetes mellitus with hyperglycemia; R22.1 Localized swelling, mass and lump, neck; F41.9 Anxiety disorder, unspecified; Z20.822 Contact with and (suspected) exposure to COVID-19; E78.5 Hyperlipidemia, unspecified